=== PATIENT | female | born 1960 | race Caucasian/White ===

== ENCOUNTER 2022-10-31 07:29 | Observation (INO) ==
--- NOTE | 2022-09-29 15:56 | PAT Medication Instructions ---
Medication Instructions Date of Service September 29, 2022 Home Medications aspirin 81 mg tablet,delayed release 81 mg PO QAM escitalopram oxalate 10 mg tablet 10 mg PO QAM levothyroxine 100 mcg tablet (Synthroid) 100 mcg PO QAM lorazepam 0.5 mg tablet 0.5 mg PO DAILY PRN Anxiety Multivitamin Women 50 Plus 1 tab PO 4XWK omega-3 fatty acids 1,000 mg PO 4XWK rosuvastatin 10 mg tablet 10 mg PO HS solifenacin 5 mg tablet 5 mg PO QAM zolpidem 5 mg tablet (Ambien) 5 mg PO HS PRN Sleep STOP taking 2 weeks before surgery (or as soon as possible if surgery is within 2 weeks) omega-3 fatty acids 1,000 mg PO 4XWK DO NOT take the morning of surgery Multivitamin Women 50 Plus 1 tab PO 4XWK solifenacin 5 mg tablet 5 mg PO QAM Take morning of surgery With a small sip of water, OTHERWISE NOTHING TO EAT OR DRINK AFTER MIDNIGHT: aspirin 81 mg tablet,delayed release 81 mg PO QAM (continue as normal unless told otherwise by surgeon) escitalopram oxalate 10 mg tablet 10 mg PO QAM levothyroxine 100 mcg tablet (Synthroid) 100 mcg PO QAM lorazepam 0.5 mg tablet 0.5 mg PO DAILY PRN Anxiety (if needed) Take evening before surgery lorazepam 0.5 mg tablet 0.5 mg PO DAILY PRN Anxiety (if needed) rosuvastatin 10 mg tablet 10 mg PO HS zolpidem 5 mg tablet (Ambien) 5 mg PO HS PRN Sleep (if needed) Other Notes If you have any questions please call us at [phone] or [phone] or [phone] or [phone]
--- NOTE | 2022-10-06 08:53 | Anesthesiology Consultation ---
Date of Service October 06, 2022 Assessment & Plan (1) Encounter for pre-operative examination: Plan - left arm restriction. - Outpatient joint assessment: Patient is currently scheduled for inpatient pathway. If re-evaluated pending system levels during current pandemic/surgeon requests outpatient pathway, patient is acceptable candidate for outpatient joint program from anesthesia standpoint pending surgeon's office assessment of pt motivation/support/completion of same day joint program preop requirements. Chart Review Chart Review: Acceptable Risk for Surgery and Patient NOT seen in Pre Admission Testing Teaching & Discussion Pre-Anesthesia Teaching/Discussion Notes: Instructed NPO after midnight before surgery, except medications with 15 cc of water. Medication instructions provided according to the PAT guidelines. History Surgery Operation Date: 10/31/22 08:10 Proposed Procedures p Right Total Knee Arthroplasty - Asif Clinton DO Height/Weight Height: 5 ft 4 in Weight: 87.997 kg Allergies Allergy/AdvReac Type Severity Reaction Status Date / Time atorvastatin Allergy Mild Muscle Pain Verified 09/19/22 10:12 Medications Home Medications Medication Instructions Recorded Confirmed Last Taken aspirin 81 mg tablet,delayed 81 mg PO QAM 09/19/22 09/19/22 Unknown release escitalopram oxalate 10 mg tablet 10 mg PO QAM 09/19/22 09/19/22 Unknown levothyroxine 100 mcg tablet 100 mcg PO QAM 09/19/22 09/19/22 Unknown (Synthroid) lorazepam 0.5 mg tablet 0.5 mg PO DAILY PRN Anxiety 09/19/22 09/19/22 Unknown multivit with 1 tab PO 4XWK 09/19/22 09/19/22 Unknown [id number]-[id number] 8 mg iron-400 mcg-300 mcg tablet (Multivitamin Women 50 Plus) omega-3 fatty acids 1,000 mg PO 4XWK 09/19/22 09/19/22 Unknown rosuvastatin 10 mg tablet 10 mg PO HS 09/19/22 09/19/22 Unknown solifenacin 5 mg tablet 5 mg PO QAM 09/19/22 09/19/22 Unknown zolpidem 5 mg tablet (Ambien) 5 mg PO HS PRN Sleep 09/19/22 09/19/22 Unknown Past Medical History Medical History Anxiety GERD (gastroesophageal reflux disease) controlled, stable per pt History of neuropathy feet-in past during chemo, denies current issues Hx of migraines Hx of thyroid cancer s/p surgery and radioactive treatment HX: breast cancer left (limb restriction), s/p surgery with chemo Hyperlipidemia Hypertension controlled with weight management Hypothyroidism Overactive bladder Sleep apnea "mild" > no device Stroke 2019, residual fatigue and mild memory loss Patient denies h/o seizures, heart attack, heart failure, DM, blood clots or blood transfusions. Exercise / Class Metabolic Activity II 4-5 Yardwork/Stairs/Walk up hill (denies chest discomfort or shortness of breath with 1 FOS) Past Family History Family History Other No family history of adverse response to anesthesia Past Surgical History Surgical History H/O breast reconstruction left H/O hernia repair "double abdominal hernia" H/O mastectomy left with reconstruction H/O total thyroidectomy History of cholecystectomy History of colonoscopy History of esophagogastroduodenoscopy (EGD) History of removal of Port-a-Cath History of tooth extraction Nausea and vomiting after administration of anesthetic agent Past Anesthesia History No Hx of Anesthesia Complications and No Family Hx of Anesthesia Complications History of PONV History of PONV (denies needing scop patch) and Hx of Motion Sickness Social History Smoking Status: Former smoker tobacco type: cigarettes Do You Dip or Chew Tobacco: No Smoking End Date: 1989 Hx Alcohol Use: Yes alcohol intake frequency: holidays/special occasions only substance use type: does not use Review of Systems Patient denies chest pain, shortness of breath, dyspnea on exertion, fever, chills, cough, wheezing, or palpitations. Physical Exam Vital Signs Vitals BP 115/81 P 70 TEMP 98.1 SP02 95% on RA RESP 18 Physical Full cervical extension range of motion without pain TMD 3.5 finger breadths Mallampati Score 3 Dentition: several crowns, denies chipped or loose teeth, caps, implants or bridges Lungs: normal respiratory effort. Good air movement, clear throughout to auscultation, no adventitious breath sounds Cardiac: regular rate and rhythm, no murmurs noted Carotid arteries: negative bruit bilat Lab Results Anesthesia Preop Results Results Anesthesia Widget: WBC 5.02 K/ul (4.8-10.8) 10/06/22 Hgb 14.9 g/dl (12.0-16.0) 10/06/22 Hct 43.0 % (37.0-47.0) 10/06/22 Plt 290 K/uL (130-400) 10/06/22 Na 139 mmol/L (136-145) 10/06/22 K 4.2 mmol/L (3.5-5.1) 10/06/22 Cl 108 mmol/L (98-107) H 10/06/22 CO2 26 mmol/L (21-32) 10/06/22 BUN 20 mg/dl (6-23) 10/06/22 Creat 0.87 mg/dl (0.6-1.2) 10/06/22 Glucose Level 92 mg/dl (70-99(Fasting)) 10/06/22 PT 10.3 Seconds (9.0-12.0) 10/06/22 PTT 25.0 Seconds (21.0-31.0) 10/06/22 INR 0.9 (0.9-1.1) 10/06/22 Blood Type O Positive 10/06/22 Antibody Screen NEGATIVE 10/06/22 Testing Electrocardiogram Date: 10/06/22 NSR, rate 63 bpm Chest X-Ray Date: 10/06/22 No acute chest disease COVID-19 Risk Screen Screening Information COVID-19 Screen Date: 10/06/22 Exposure 21 Days Family/Household +COVID Last 21 Days: No Exposure 10 Days Any COVID Exposure Last 10 Days: No Symptoms Last 10 Days Experienced COVID Sx Last 10 Days: No + COVID 0-90 Days COVID + in Last 0-90 Days: No
--- NOTE | 2022-10-30 12:15 | History & Physical Report ---
Date of Service October 30, 2022 Assessment & Plan (1) Osteoarthritis of right knee: We will proceed with a right total knee arthroplasty. Postoperatively she will be started on aspirin for DVT prophylaxis and kept overnight in the hospital for postop medical management. She plans to have the hospital set up home health for discharge. History of Present Illness Chief Complaint: Osteoarthritis of the right knee. Primary Care Provider: Megan Springer DO Angela is a pleasant 61-year-old female who has been dealing with chronic worsening right knee pain. She has been dealing with an orthopedist in [place] for years. She has had multiple injections including viscosupplementation. She is really struggling with the right knee. She has trouble getting around the store. She cannot go up and down stairs. X-rays and clinical examination are diagnostic for advanced osteoarthritis of the right knee. After failing conservative treatment, she has elected proceed with a right total knee arthroplasty. . Allergies Allergy/AdvReac Type Severity Reaction Status Date / Time atorvastatin Allergy Mild Muscle Pain Verified 09/19/22 10:12 Home Medications Medication Instructions Recorded Confirmed Type aspirin 81 mg tablet,delayed 81 mg PO QAM 09/19/22 09/19/22 History release escitalopram oxalate 10 mg tablet 10 mg PO QAM 09/19/22 09/19/22 History levothyroxine 100 mcg tablet 100 mcg PO QAM 09/19/22 09/19/22 History (Synthroid) lorazepam 0.5 mg tablet 0.5 mg PO DAILY PRN Anxiety 09/19/22 09/19/22 History jxvjurdl-prvb-vdnv 8 mg-folic 400 1 tab PO 4XWK 09/19/22 09/19/22 History mcg-K 50 mcg-lutein 300 mcg tablet (Multivitamin Women 50 Plus) omega-3 fatty acids 1,000 mg PO 4XWK 09/19/22 09/19/22 History rosuvastatin 10 mg tablet 10 mg PO HS 09/19/22 09/19/22 History solifenacin 5 mg tablet 5 mg PO QAM 09/19/22 09/19/22 History zolpidem 5 mg tablet (Ambien) 5 mg PO HS PRN Sleep 09/19/22 09/19/22 History Past Med/Surg History Medical History Anxiety GERD (gastroesophageal reflux disease) controlled, stable per pt History of neuropathy feet-in past during chemo, denies current issues Hx of migraines Hx of thyroid cancer s/p surgery and radioactive treatment HX: breast cancer left (limb restriction), s/p surgery with chemo Hyperlipidemia Hypertension controlled with weight management Hypothyroidism Overactive bladder Sleep apnea "mild" > no device Stroke 2020, residual fatigue and mild memory loss Surgical History H/O breast reconstruction left H/O hernia repair "double abdominal hernia" H/O mastectomy left with reconstruction H/O total thyroidectomy History of cholecystectomy History of colonoscopy History of esophagogastroduodenoscopy (EGD) History of removal of Port-a-Cath History of tooth extraction Nausea and vomiting after administration of anesthetic agent Family History Other No family history of adverse response to anesthesia Social History Smoking Status: Former smoker Smoking End Date: 1989; Second Hand Exposure: Yes (in the past); Do You Dip or Chew Tobacco: No; Hx Alcohol Use: Yes Preferred Language: Latvian Guest Room Attendant Required: No Beliefs That Will Affect Care: None Current Living Situation: Spouse Feels Safe at Home: Yes Safety Concerns: Feels Safe At This Time Assistive Devices: Cane and Glasses Review of Systems All systems reviewed & are unremarkable except as noted in HPI & below. Physical Exam Physical examination the right knee, she has slight varus deformity. She has t enderness palpation of the distal medial femoral condyle and over the medial joint line. She has no gross instability.. Constitutional WD/WN, vitals as above Eyes PERRL, conjunctivae normal, anicteric sclerae ENMT external ear and nose normal, oropharynx normal Neck trachea midline, no thyromegaly Respiratory normal respiratory effort, lungs clear to auscultation Cardiovascular RRR, no murmur, no edema Gastrointestinal (Abdomen) normal bowel sounds, soft, nontender, no hepatosplenomegaly Skin no rashes, warm and dry Psychiatric A+Ox3, euthymic affect Results & Data Results & Data Laboratory Results . Diagnostic Findings X-rays of the right knee show advanced osteoarthritis with joint space narrowing, osteophyte formation, and [id number] reticulation. PG Care Time/CCT Total # of Minutes Spent Total Time Spent with Patient: Total time spent is greater than 50% in coordination of care (as documented) at patient's floor/unit and/or counseling patient: Coding Level of Care Code None Diagnoses Osteoarthritis of right knee M17.11
[~2022-10-31 07:29] MED LIST: ACETAMINOPHEN 500 MG TAB PO SCH; BUPIVACAINE 0.5 % 5 MG/1 ML PF 10ML VIAL ONE; FAMOTIDINE 20 MG TAB PO SCH; GABAPENTIN 300 MG CAP PO SCH; LR 500ML BOLUS, THEN 15ML/HR IV SCH; LR 60ML/HR IV SCH; ORTHO JOINT MIX INFIL SCH; ROPIVACAINE 0.5% 5 MG/ML 30 ML VIAL ONE; TRANEXAMIC ACID 1,000 MG **IV Intra-op IV SCH; TRANEXAMIC ACID 1,000 MG **IV Pre-op IV SCH; ceFAZolin 2000MG 2,000 MG/15 ML SYR IV SCH; dexAMETHasone 4 MG TAB PO SCH
[2022-10-31] MEDS ORDERED: PROPOFOL IV EMULSION 10 MG/ML 20 ML VIAL IV ONE (08:16)
[2022-10-31] MEDS ORDERED: LIDOCAINE 2% 2 ML VIAL/AMP(20MG/ML) INFIL ONE (08:16)
[2022-10-31] MEDS ORDERED: MIDAZOLAM HCL 1 MG/ML 2ML VIAL ONE (08:16)
--- NOTE | 2022-10-31 09:24 | History & Physical Bridge Note ---
Date of Service October 31, 2022 History & Physical Bridge Note I have examined the patient, reviewed the History & Physical and in the interval since the performance of the History & Physical I have noted the following changes of clinical significance: no changes noted
[2022-10-31] MEDS ORDERED: ORTHO JOINT ANESTHETIC ONE (09:46)
[2022-10-31] MEDS ORDERED: ATROPINE SULFATE 0.1 MG/ML 10ML SYR IV PRN (10:33)
[2022-10-31] MEDS ORDERED: fentaNYL citrate PF 100 MCG/2 ML VIAL IV PRN (10:33)
[2022-10-31] MEDS ORDERED: HYDROmorphone INJ 2 MG/ML SYR/VIAL IV PRN (10:33)
[2022-10-31] MEDS ORDERED: ONDANSETRON INJ 2 MG/ML 2 ML VIAL IV PRN ×2 (10:33→13:16)
[2022-10-31] MEDS ORDERED: ePHEDrine sulfate 50 MG/ML AMP IV PRN (10:33)
[2022-10-31] MEDS ORDERED: PROMETHAZINE HCL 12.5 MG in SODIUM CHLORIDE 0.9% 50 ML IV PRN (10:33)
[2022-10-31] MEDS ORDERED: DEXAMETHASONE SOD INJ 4 MG/ML VIAL ONE (10:57)
[2022-10-31] MEDS ORDERED: ONDANSETRON INJ 2 MG/ML 2 ML VIAL ONE (10:57)
--- NOTE | 2022-10-31 11:46 | Operative Report ---
PG Post Operative Report Pre & Post Diagnosis Operation Date: 10/31/22 10:10 Pre-Op Diagnosis: DJD Right Knee Post-Op Diagnosis: DJD Right Knee I identified the patient and participated in the time-out.: Yes Procedure Operation Date: 10/31/22 10:10 Actual Procedures p Right Total Knee Arthroplasty(Right) - Asif Clinton DO Surgeon Asif Clinton DO Hydraulic Jack Operator Asif Yang PA-C Estimated Blood Loss 30 Findings Consistent with Post-Op Diagnosis Specimens Right femoral and tibial bone Description of Procedure Implants used: I used a Lucia Persona total knee arthroplasty system with a size 7 narrow femur, D tibia, 28 oval patella, and a size 13 medial congruent polyethylene bearing. All components were cemented in place with Biomet cement. Angela arrived [facility] for the above procedure. She was seen in the preoperative holding area and the operative extremity was identified and signed. She was given a preoperative antibiotic, TXA, a spinal anesthetic and an adductor nerve block. She was taken back to the operating room and laid on the table in supine position. She was given basic sedation. The operative knee was then prepped and draped in sterile fashion. A timeout was done, and the patient and the operative extremity was properly identified. A midline incision was made directly over the patella. Dissection was taken down to the extensor mechanism. A midvastus arthrotomy was used. The medial retinaculum was released and the fat pad was mostly excised. The knee was flexed and the ACL, PCL, and meniscus were removed. A drill was sent down the center of the femoral canal followed by an intramedullary kandice. Off that kandice a distal femoral cutting block was placed. 9 mm was resected off the distal femur at 5 of valgus. A posterior referencing AP sizing guide was then placed on the distal femur. The femur measured to be a size 7. 2 drill holes were placed in 3 of external rotation. A 4-in-1 cutting block was then impacted into place. Anterior, posterior, and chamfer cuts were then made. The proximal tibia was then exposed. An external tibial alignment guide was placed. A tibial cut guide was then anchored in place and the proximal tibia was then resected. The posterior aspect of the knee was then opened up and any additional meniscus fragments and osteophytes were removed. The tibia measured to be a size D. The tibial plate was then placed in the appropriate rotation and the tibia was drilled and punched. Trial components were then placed. I used a size 13 medial congruent polyethylene insert. The knee was brought through a full range of motion and felt to be stable. The peg holes for the femoral component were then drilled. The patella was then everted and 9 mm was resected off the posterior aspect of the patella. The patella measured to be a size 28 oval. 3 peg holes were then drilled. A trial patella was placed. The knee was once again brought through a full range of motion and felt to be stable. Trial components were then removed. The surrounding soft tissues were injected with 100 cc of an orthopedic pain control cocktail. All components were then cemented into place with Biomet cement. The final polyethylene insert was then snapped into place. Once cement was dry the tourniquet was deflated. Hemos tasis was obtained. A dilute betadyne lavage was then done for 3 minutes. The joint was then irrigated with normal saline solution. The midvastus arthrotomy was then closed with #1 Vicryl suture. The skin was closed with 2-0 Vicryl, 3- 0V lock suture, and hang. A soft compressive dressing was placed. She was then transferred to a hospital bed and taken to the postanesthesia care unit in stable condition. She tolerated the procedure well. Asif Yang PA-C, was present for the entire procedure. He was critical for patient positioning, prepping, draping, retraction exposure, wound closure and application of sterile dressing. I attest to the content of the Intraoperative Record and any orders documented therein. Any exceptions are noted below.
[2022-10-31] MEDS ORDERED: HYDROmorphone INJ 0.5 MG/0.5 ML SYR IV PRN (13:16)
[2022-10-31] MEDS ORDERED: SODIUM CHLORIDE 0.9% 1000ML 1,000 ML IV SCH (13:16)
[2022-10-31] MEDS ORDERED: MAGNESIUM HYDROXIDE SUSP 30 ML UDC PO PRN (13:16)
[2022-10-31] MEDS ORDERED: METOCLOPRAMIDE HCL INJ 5 MG/ML 2 ML VIAL IV PRN (13:16)
[2022-10-31] MEDS ORDERED: NALOXONE HCL 0.4 MG/1 ML VIAL/CARP IV PRN (13:16)
[2022-10-31] MEDS ORDERED: ZOLPIDEM TARTRATE 5 MG TAB PO PRN (13:16)
[2022-10-31] MEDS ORDERED: LORazepam 0.5 MG TAB PO PRN (13:16)
[2022-10-31] MEDS ORDERED: bisacodyL 10 MG SUPP PR PRN (13:16)
--- NOTE | 2022-10-31 13:41 | Anesthesiology Progress Note ---
Date of Service October 31, 2022 Anesthesia Post Procedure Vital Signs Vital Signs: Temp Pulse Pulse Pulse Resp BP Pulse Ox 10/31/22 13:35 36.4 C L 68 16 108/74 99 10/31/22 13:05 10/31/22 13:05 36.4 C L 59 L 16 108/73 93 10/31/22 12:30 62 16 120/69 95 10/31/22 12:50 60 16 115/73 95 10/31/22 12:40 36.4 C L 62 20 113/71 95 10/31/22 12:20 60 14 112/71 96 10/31/22 12:10 65 14 113/73 94 10/31/22 12:06 36.5 C 72 14 115/72 94 10/31/22 08:32 36.7 C 77 18 159/81 H 97 O2 Del Method O2 Flow Rate 10/31/22 13:35 Nasal Cannula 1 10/31/22 13:05 Nasal Cannula 2 10/31/22 13:05 Nasal Cannula 2 10/31/22 12:30 Nasal Cannula 2 10/31/22 12:50 Nasal Cannula 2 10/31/22 12:40 Nasal Cannula 2 10/31/22 12:20 Nasal Cannula 2 10/31/22 12:10 Nasal Cannula 2 10/31/22 12:06 Nasal Cannula 2 10/31/22 08:32 Room Air Transfer of Care Handoff Completed per policy Notes Mental Status: alert / awake / arousable and participated in evaluation Nausea / Vomiting: adequately controlled Pain: adequately controlled Airway Patency, RR, SpO2: stable & adequate BP & HR: stable & adequate Hydration State: stable & adequate Neuraxial Anesthesia: was administered and sensory block is resolving Anesthetic Complications: no major complications apparent and Pt Satisfied with anesthetic care
--- NOTE | 2022-10-31 13:53 | XRay Report ---
XR knee RT 1 or 2V routine CLINICAL HISTORY: Postoperative evaluation. COMPARISON: Knee radiographs August 12, 2022. FINDINGS: Alignment of the total right knee arthroplasty is anatomic. There is no periprosthetic fra cture or unexpected radiopaque foreign body. There are skin hang. IMPRESSION: Expected findings following total right knee arthroplasty. ACT 112: Negative or not required by law. Electronically signed by: Pete Leone M.D. 10/31/2022 1:51 PM
[2022-10-31] MEDS: KETOROLAC 30 MG/ML VIAL IV SCH ×2 (14:04→20:09)
[2022-10-31] MEDS: ACETAMINOPHEN 500 MG TAB PO SCH (16:59)
[2022-10-31] MEDS: ceFAZolin 2000MG 2,000 MG/15 ML SYR IV SCH (17:41)
[2022-10-31] MEDS: ASPIRIN 81 MG ECTAB PO SCH (20:09)
[2022-10-31] MEDS: DOCUSATE SODIUM 100 MG CAP PO SCH (20:09)
[2022-10-31] MEDS ORDERED: SENNA 8.6 MG TAB PO SCH (21:00)
[2022-10-31] MEDS ORDERED: ROSUVASTATIN CALCIUM 10 MG TAB PO SCH (21:00)
[2022-11-01] MEDS: ceFAZolin 2000MG 2,000 MG/15 ML SYR IV SCH (02:04)
[2022-11-01] MEDS: ACETAMINOPHEN 500 MG TAB PO SCH ×2 (02:05→07:57)
[2022-11-01] MEDS: KETOROLAC 30 MG/ML VIAL IV SCH ×2 (02:05→07:57)
[2022-11-01] MEDS ORDERED: LEVOTHYROXINE SODIUM 100 MCG TABLET PO SCH (06:30)
[2022-11-01] MEDS ORDERED: dexAMETHasone 4 MG TAB PO SCH (08:00)
--- NOTE | 2022-11-01 08:23 | Orthopedic Progress Note ---
Date of Service November 01, 2022 Assessment & Plan (1) Status post right knee replacement: Overall she is doing very well. She is not having much pain in the right knee. She will be seen by physical therapy today for ambulation and range of motion exercises. She is on aspirin for DVT prophylaxis. She can be discharged home later today. She will follow-up with orthopedics in 2 weeks. Milli Miller was seen and examined at bedside this morning. Overall she is doing very well. She is not having much pain in the right knee. She has been up and ambulating to the bathroom. She is no complaints.. Review of Systems All systems reviewed & are unremarkable except as noted in HPI & below. Physical Exam On physical examination of the right knee, the dressing is clean and dry. Her leg is out full extension. She has active dorsiflexion plantarflexion of her right ankle.. Results & Data Results & Data Laboratory Results . Diagnostic Findings Postoperative x-rays of the right knee show the prosthesis to be in anatomic alignment without any evidence of fracture, dislocation, or loosening.. PG Care Time/CCT Total # of Minutes Spent Total Time Spent with Patient: Total time spent is greater than 50% in coordination of care (as documented) at patient's floor/unit and/or counseling patient: Coding Level of Care Code 00975 Post Operative Follow-Up Diagnoses Status post right knee replacement Z96.651
--- NOTE | 2022-11-01 08:24 | Discharge Summary ---
Date of Service November 01, 2022 Admission HPI (Per Admitting) Angela is a pleasant 61-year-old female who has been dealing with chronic worsening right knee pain. She has been dealing with an orthopedist in [place] for years. She has had multiple injections including viscosupplementation. She is really struggling with the right knee. She has trouble getting around the store. She cannot go up and down stairs. X-rays and clinical examination are diagnostic for advanced osteoarthritis of the right knee. After failing conservative treatment, she has elected proceed with a right total knee arthroplasty. . Admission Exam (Per Admitting) Physical examination the right knee, she has slight varus deformity. She has tenderness palpation of the distal medial femoral condyle and over the medial joint line. She has no gross instability.. Principal Diagnosis Same as "Discharge Diagnosis" noted below under Discharge Instructions. Discharge Exam On physical examination of the right knee, the dressing is clean and dry. Her leg is out full extension. She has active dorsiflexion plantarflexion of her right ankle.. Discharge Data Procedures Performed Operation Date: 10/31/22 10:10 Actual Procedures p Right Total Knee Arthroplasty(Right) - Asif Clinton DO Ordered Studies 10/31/22 05:00 US - OR guided needle placemen Routine Hospital Course (1) Status post right knee replacement: On October 31, 2022 Angela arrived at [facility] and underwent a right knee replaced without complication. She had a spinal anesthetic. Postoperatively she was started on aspirin for DVT prophylaxis and transferred to the general orthopedic floors. Her hospital course was uneventful. On postop day #1, her vital signs were stable and her pain was well controlled. She was able to participate well with physical therapy doing ambulation and range of motion exercises. She was then discharged home. She will follow-up with orthopedics in 2 weeks. PG Care Time/CCT Total # of Minutes Spent Total Time Spent with Patient: Total time spent is greater than 50% in coordination of care (as documented) at patient's floor/unit and/or counseling patient: Discharge Plan Discharge Items Patient Disposition: Home - Home Health Services Reason For Visit: DJD Right Knee Discharge Diagnosis: Right knee replacement Activity: Per Instructions section Non-emergency contact: Surgeon Call non-emergency contact if: your wound has increased redness and your wound has increased drainage Follow-up/Referrals: SELF,REFERRED [Non-Staff] - Diet: Regular Addtl Attending Provider Instructions: Activity and Therapy Recommendations: * If you are using [facility] then therapy will be provided at your home until they feel you have accomplished all of your goals. * If you are using [facility] then Physical Therapy will be provided until they feel you are ready to start Outpatient Physical Therapy. * If you are not using home therapy then Outpatient Physical Therapy should start about 3-5 days from your day of surgery. Therapy will last about 6-10 weeks * It is important not to put a pillow under your knee when you are relaxing or sleeping. It is just as important to make sure you are getting your knee perfectly straight as it is to regain your knee bend. * You were shown a series of exercises in the hospital. Do these exercises three times each day including the exercises you were shown in physical therapy. * Get up and walk several times each day. For the first four weeks, try not to stand or walk for more than one hour at a time. If you do stand or walk for more than one hour, you will not hurt anything, but your leg will likely swell. * As you feel comfortable, you may change from the walker or crutches to a cane and then to independent walking. Medications: * Narcotic You will likely be sent home from the hospital with a prescription for the narcotic pain medication that worked best throughout your stay. * Celebrex -Celebrex as an anti-inflammatory. Take twice a day for 2 weeks after surgery. * Aspirin Most patients will be required to take Aspirin 81mg twice a day for 6 weeks after surgery. This is obtained [id number] and a prescription is not necessary. * Other medications may be prescribed for specific circumstances. If you have any questions, please call the office at . * Resume previous home medications unless otherwise instructed TEDs/Elastic Stockings: The white elastic stockings help limit swelling and prevent blood clots from forming in your legs.~ The more you wear them, the more they work. Wear them for six weeks. Dressing Care: The dressing can be changed after physical therapy on postop day #1. Daily dry dressing changes for a few days, especially if the incision is still draining some. If the incision is not draining then you may leave the hang open to air. If there is a little bit of drainage or if the hang are getting stuck on your clothing then cover the incision with a dry dressing. The hang will be removed at your 2 week follow-up appointment. Showering: You may shower 5 days from the day of surgery as long as the incision is no longer draining. You may shower with the hang exposed. Let soapy water run over the hang and pat them dry. Do not scrub or soak the incision. Things To Watch For: * Drainage from the incision site that occurs more than one week after your surgery. * Increased redness at the incision site. * Fever above 102 degrees Fahrenheit. * Unusual chest pain or shortness of breath. * Call [facility] at with any of the above problems Follow-Up Visit: Follow-up with Dr. Clinton's PA (Asif Yang) 2-3 weeks after your day of surgery. He will remove your hang and answer any questions. If you have any additional questions or concerns, Dr Clinton is usually in the office at the same time and will be available An appointment was probably scheduled when you signed-up for surgery in the office. If you have any questions call Office Instructions: More detailed instructions as well as Frequently Asked Questions were provided in a folder by our office when you signed-up for surgery. Please review these instructions when you get home. If you have any further questions or concerns, please feel free to call the office at [phone] Pending Studies at Discharge: No Stand-Alone Forms: [facility], Smoking Cessation Medications and DC Order Prescriptions: New oxycodone-acetaminophen 5-325 mg tablet 1 tab PO Q6H PRN (Reason: pain) Qty: 30 0RF celecoxib [Celebrex] 200 mg capsule 200 mg PO BID Qty: 28 0RF Rx Instructions: Take 1 pill twice a day for 2 weeks after surgery Continued levothyroxine [Synthroid] 100 mcg Tablet 100 mcg PO QAM lorazepam 0.5 mg Tablet 0.5 mg PO DAILY PRN (Reason: Anxiety) Patient Comments: usually takes before plane flights zolpidem [Ambien] 5 mg Tablet 5 mg PO HS PRN (Reason: Sleep) escitalopram oxalate 10 mg Tablet 10 mg PO QAM rosuvastatin 10 mg Tablet 10 mg PO HS solifenacin 5 mg Tablet 5 mg PO QAM [place] 3 Capsule 1,000 mg PO 4XWK Multivitamin Women 50 Plus 8 mg iron-400 mcg-300 mcg Tablet 1 tab PO 4XWK Changed aspirin 81 mg Tablet,Delayed Release (Dr/Ec) 81 mg PO BID 42 Days Qty: 0 0RF Admission Data Admit Date/Time: 10/31/22 12:10 Attending Provider: Asif Clniton Admit Provider: Asif Clinton Primary Care Provider: Megan Springer
[2022-11-01] MEDS: oxyCODONE HCL IR 5 MG TAB (IMMEDIATE RELEASE) PO PRN ×2 (08:30→10:18)
[2022-11-01] MEDS: ASPIRIN 81 MG ECTAB PO SCH (08:31)
[2022-11-01] MEDS: DOCUSATE SODIUM 100 MG CAP PO SCH (08:31)
[2022-11-01] MEDS ORDERED: MULTIVITAMIN TAB PO SCH (09:00)
[2022-11-01] MEDS ORDERED: OXYBUTYNIN CHLORIDE XL 5 MG TABCR PO SCH (09:00)
[2022-11-01] MEDS ORDERED: ESCITALOPRAM OXALATE 10 MG TAB PO SCH (09:00)
== END 2022-11-01 11:49 | disposition home health service (06) ==
LOC: 3E 07:29 → ASU 07:29